=== PATIENT | male | born 1980 | race Caucasian/White ===

== ENCOUNTER 2020-01-17 10:29 | Emergency (ER) | payer BC, MEDICAID ==
[~2020-01-17] VITALS: Ht 185.4 cm; Wt 87.0 kg
[~2020-01-17 10:29] MED LIST: NO HOME MEDS
[2020-01-17 10:41] VITALS: BP 131/92
== END 2020-01-17 12:43 | disposition home or self-care (01) ==
LOC: ER 10:29
DX: S22.31XA Fracture of one rib, right side, initial encounter for closed fracture (principal); Z79.899 Other long term (current) drug therapy; X58.XXXA Exposure to other specified factors, initial encounter; Y93.89 Activity, other specified; Y92.89 Other specified places as the place of occurrence of the external cause; Y99.8 Other external cause status
CPT/HCPCS: 71046; 99284